=== PATIENT | female | born 1970 | race African-American/Black ===

== ENCOUNTER 2020-11-23 16:40 | Emergency (ER) | payer OTHER ==
[~2020-11-23] VITALS: Ht 172.7 cm; Wt 113.4 kg
== END 2020-11-23 19:37 | disposition home or self-care (01) ==
LOC: ER 16:40
DX: M25.572 Pain in left ankle and joints of left foot (principal); M79.632 Pain in left forearm; Z91.81 History of falling

== ENCOUNTER 2021-09-04 12:47 | Emergency (ER) | payer OTHER ==
[~2021-09-04] VITALS: Ht 172.7 cm; Wt 97.5 kg
[2021-09-04] MEDS ORDERED: CLOTRIMAZOLE-BE15 G1 TOP (17:16)
[2021-09-04] MEDS ORDERED: DICLOFENAC SODI75 MG PO (17:16)
== END 2021-09-04 18:05 | disposition home or self-care (01) ==
LOC: ER 12:47
DX: S80.12XA Contusion of left lower leg, initial encounter (principal); S70.02XA Contusion of left hip, initial encounter; W18.39XA Other fall on same level, initial encounter; Y93.89 Activity, other specified; Y92.018 Other place in single-family (private) house as the place of occurrence of the external cause